=== PATIENT | female | born 1990 | race Caucasian/White ===

== ENCOUNTER 2022-11-29 15:25 | Emergency (ER) | payer BC, MEDICAID, SELFPAY ==
[2022-11-29] VITALS (9 sets, daily range): BP systolic 122–126; BP diastolic 82–84; PULSE 89; RESP 16; TEMP 36.7; O2SAT 94–99
--- NOTE | 2022-11-29 16:28 | ED_ITS ---
HPI - Abdominal Pain General: Chief Complaint: Abdominal Pain Stated Complaint: possible appy, sent from [place] Time Seen by Provider: 11/29/22 16:08 Source: patient Mode of arrival: ambulatory History of Present Illness: 32-year-old male presents emergency room with complaints of right lower quadrant abdominal pain. She states she has had abdominal pain for the last week. She is also difficulty with urination. She denies any fevers or chills she has a history of endometriosis. She has a little difficulty with getting her bladder empty. She not had any diarrhea no hematochezia melena hematemesis or coffee-ground emesis. MD elicited complaint: abdominal pain Onset (ago): week(s) (1) Pain Consistency: intermittent Location: RLQ Severity: moderate Quality: cramping Radiation: none Migration to: no migration Exacerbating factors: nothing Relieving factors: nothing Associated Symptoms: Denies anorexia, belching, bloating, change in bowel habits, change in stool character, chills, coffee ground emesis, constipation, GI cramping, diarrhea, dyspepsia, dysuria, excessive flatus, fever(s), heartburn, hematochezia, hematuria, hematemesis, fecal incontinence, loose stools, melena, nausea, poor appetite, syncope and vomiting Review of Systems Const: Denies: fever(s) or chills ENMT: Denies: throat pain, ear or mastoid pain, nasal discharge or nasal congestion Card: Denies: syncope Resp: Denies: dyspnea, productive cough or non-productive cough GI: Reports: abdominal pain; Denies: nausea, vomiting, hematemesis, coffee ground emesis, heartburn, diarrhea, constipation, bloating, GI cramping, belching, excessive flatus, fecal incontinence, change in bowel habits, change in stool character, hematochezia or melena : Denies: dysuria or hematuria Skin/Breast: Denies: rash or pruritus PFSH ED PFSH: Social History Smoking and tobacco status: current every day smoker Alcohol intake: current Alcohol intake frequency: holidays/special occasions only Physical Exam Const: COMMON NORMALS: no acute distress GENERAL APPEARANCE: cooperative and comfortable ORIENTATION/CONSCIOUSNESS: Yes awake, Yes oriented to person, Yes oriented to place and Yes oriented to time HENMT: COMMON NORMALS: normocephalic, atraumatic and hearing grossly normal bilaterally HEAD & SCALP: normocephalic and atraumatic Resp: COMMON NORMALS: normal respiratory effort, No retractions, No use of accessory muscles and clear to auscultation bilaterally AUSCULTATION: clear to auscultation bilaterally Cardio: COMMON NORMALS: regular rate, regular rhythm and No murmurs present (Cardio) RATE: regular rate RHYTHM: regular rhythm GI: COMMON NORMALS: No hepatosplenomegaly present AUSCULTATION: Yes normoactive bowel sounds PALPATION: Yes Tenderness to palpation present (GI) Details: RLQ, No Guarding due to palpation present (GI) and Yes No hepatosplenomegaly present Extremity: COMMON NORMALS: normal to inspection, capillary refill normal, no clubbing, cyanosis or edema, no calf tenderness and no pedal edema Neuro: SENSORIUM/ORIENTATION: Yes oriented to person, Yes oriented to place and Yes oriented to time Skin: COMMON NORMALS: no rashes or lesions noted GENERAL SKIN EXAM: no rashes or lesions noted Course Vital Signs: Vital signs: Vital Signs Temperature 98.1 F 11/29/22 15:36 Pulse Rate 89 11/29/22 15:36 Respiratory Rate 16 11/29/22 15:36 Blood Pressure 125/84 11/29/22 17:30 Pulse Oximetry 98 11/29/22 17:30 Oxygen Delivery Me thod 11/29/22 15:36 MDM - Abdominal Pain Medical Decision Making CT does not show any acute appendicitis there is a 2 cm right ovarian cyst which is likely the cause of the pain. We will discharge patient home with anti- inflammatories follow-up with primary care doctor in the next 1 to 2 months for repeat ultrasound if pain persist with worsening symptoms return to discussed with her that if this cyst were to rupture would likely cause significant discomfort if she is uncertain she is certainly welcome to return to the emergency room. Medical Records I reviewed the patient's medical records. Lab Data I reviewed the patient's lab results. 11/29/22 16:20 11/29/22 16:20 Labs/Radiology: Radiology Impressions Abdomen/Pelvis CT 11/29/22 16:32 IMPRESSION: 1. The gallbladder is contracted with wall thickening. This may reflect postprandial state. If acute cholecystitis is suspected clinically consider follow-up with a right upper quadrant ultrasound. 2. Normal appendix. Laboratory Results WBC 10.5 10^3/uL (4.0-10.0) H 11/29/22 16:20 RBC 4.00 10^6/uL (4.1-5.3) L 11/29/22 16:20 Hgb 13.0 g/dL (11.5-15.3) 11/29/22 16:20 Hct 38.3 % (37.0-47.0) 11/29/22 16:20 MCV 95.8 fl (81-99) 11/29/22 16:20 MCH 32.5 pg (28.0-34.0) 11/29/22 16:20 MCHC 33.9 g/dL (30.0-36.0) 11/29/22 16:20 RDW 11.7 % (12.1-15.1) L 11/29/22 16:20 Plt Count 330 10^3/cmm (130-400) 11/29/22 16:20 MPV 9.5 fL (7.4-10.4) 11/29/22 16:20 Neut % (Auto) 68.8 % 11/29/22 16:20 Lymph % (Auto) 24.1 % 11/29/22 16:20 [place] % (Auto) 4.9 % 11/29/22 16:20 Eos % (Auto) 1.3 % 11/29/22 16:20 Baso % (Auto) 0.5 % 11/29/22 16:20 Neut # (Auto) 7.21 10^3/uL (1.8-7.7) 11/29/22 16:20 Lymph # (Auto) 2.5 10^3/uL (0.8-4.8) 11/29/22 16:20 [place] # (Auto) 0.5 10^3/uL (0.2-0.9) 11/29/22 16:20 Eos # (Auto) 0.1 10^3/uL (0.0-0.8) 11/29/22 16:20 Baso # (Auto) 0.1 10^3/uL (0.0-0.1) 11/29/22 16:20 Nucleated RBC % (auto) 0 % 11/29/22 16:20 Nucleated RBCs # 0.0 /100WBC 11/29/22 16:20 Sodium 142 mmol/L (136-145) 11/29/22 16:20 Potassium 3.3 mmol/L (3.5-5.1) L 11/29/22 16:20 Chloride 105 mmol/L (98-107) 11/29/22 16:20 Carbon Dioxide 26 mmol/L (22-29) 11/29/22 16:20 Anion Gap 14.3 (5-19) 11/29/22 16:20 BUN 6 mg/dL (6-20) 11/29/22 16:20 Creatinine 0.7 mg/dL (0.5-0.9) 11/29/22 16:20 GFR Calculation 96.4 mL/min (90-130) 11/29/22 16:20 Glucose 85 mg/dL (65-115) 11/29/22 16:20 Calculated Osmolality 291 mOsm/kg (285-295) 11/29/22 16:20 Calcium 8.9 mg/dL (8.5-10.5) 11/29/22 16:20 Total Bilirubin 0.2 mg/dL (0.15-1.2) 11/29/22 16:20 AST 17 U/L (0-32) 11/29/22 16:20 ALT 21 U/L (0-33) 11/29/22 16:20 Alkaline Phosphatase 63 U/L (35-105) 11/29/22 16:20 Total Protein 6.9 g/dL (6.6-8.7) 11/29/22 16:20 Albumin 3.8 g/dL (3.5-5.2) 11/29/22 16:20 Globulin 3.1 g/dL (1.3-4.6) 11/29/22 16:20 Lipase 28 U/L (13-60) 11/29/22 16:20 HCG, Qual Negative (Negative) 11/29/22 16:20 Urine Color Light yellow (Yellow) 11/29/22 17:47 Urine Appearance Clear (CLEAR) 11/29/22 17:47 Urine pH 8 (5-7) H 11/29/22 17:47 Ur Specific [place] 1.015 (1.005-1.030) 11/29/22 17:47 Urine Protein Neg (Negative) 11/29/22 17:47 Urine Glucose (UA) Norm (Normal) 11/29/22 17:47 Urine Ketones Negative (Negative) 11/29/22 17:47 Urine Blood Neg (Negative) 11/29/22 17:47 Urine Nitrate Negative (Negative) 11/29/22 17:47 Urine Bilirubin Neg (Negative) 11/29/22 17:47 Prot Sulfosalicylic Acd Negative (Negative) 11/29/22 17:47 Urine Urobilinogen Norm mg/dL (Negative) 11/29/22 17:47 Ur Leukocyte Esterase Negative (Negative) 11/29/22 17:47 Discharge Plan Discharge Patient Disposition: Home Clinical Impression: Ovarian cyst Condition: Stable Prescriptions: New diclofenac sodium 75 mg tablet,delayed release (DR/EC) 75 mg PO Q12H PRN (Reason: pain) Qty: 20 0RF No Action paroxetine HCl 20 mg tablet 20 mg PO DAILY buspirone 15 mg tablet 15 mg PO DAILY Discharge Orders: Discharge ED (Routine); Ordered 11/29/22 Ordered By: Franky Mathews Referrals: Patrick Deras MD [Primary Care Provider] - Discharge Diet: Usual diet Discharge Activity: Increase activity as tolerated Patient Instructions: Opioid Safety, Pain Management Activity Restrictions/Additional Instructions: You are seen today for right-sided abdominal pain CT showed a normal appendix you do have an approximately 2 cm right ovarian cyst. If your symptoms persist follow-up with your primary care doctor you may need to repeat ultrasound in the next 1 to 2 months. For now recommend use diclofenac 1 every 12 hours as needed for abdominal discomfort. Coding Level of Care Code ED Director Game for Enio Lwory
[2022-11-29 16:31] LABS: Basophils # 0.1 10^3/uL (0.0-0.1); Basophils % 0.5 %; Eosinophils # 0.1 10^3/uL (0.0-0.8); Eosinophils % 1.3 %; Hematocrit 38.3 % (37.0-47.0); Lymphocytes # 2.5 10^3/uL (0.8-4.8); Lymphocytes % 24.1 %; Mean Corpuscular HGB Conc 33.9 g/dL (30.0-36.0); Mean Corpuscular Hemoglobin 32.5 pg (28.0-34.0); Mean Corpuscular Volume 95.8 fl (81-99); Mean Platelet Volume 9.5 fL (7.4-10.4); Monocytes # 0.5 10^3/uL (0.2-0.9); Monocytes % 4.9 %; Neutrophils # 7.21 10^3/uL (1.8-7.7); Neutrophils % 68.8 %; Nucleated Red Blood Cells % 0 %; Platelet Count 330 10^3/cmm (130-400); Red Cell Distribution Width 11.7 % (12.1-15.1); White Blood Count 10.5 10^3/uL (4.0-10.0)
--- NOTE | 2022-11-29 16:32 | CTR_ITS ---
PROCEDURE INFORMATION: Exam: CT Abdomen And Pelvis Without Contrast Exam date and time: 11/29/2022 5:18 PM Age: 32 years old Clinical indication: Abdominal pain; Localized; Right lower quadrant (rlq); Prior surgery; Surgery type: Uterus scraped for endometriosis TECHNIQUE: Imaging protocol: Computed tomography of the abdomen and pelvis without contrast. Radiation optimization: All CT scans at this facility use at least one of these dose optimization techniques: automated exposure control; mA and/or kV adjustment per patient size (includes targeted exams where dose is matched to clinical indication); or iterative reconstruction. REPORTING DATA: Count of CT and Cardiac NM exams in prior 12 months: This patient has received 0 known CTs and 0 known cardiac nuclear medicine studies in the 12 months prior to the current study. COMPARISON: US transvaginal [id number] 09/27/2018 10:30 PM RADIATION DOSE METRICS: Total DLP (mGy-cm): 518.06 FINDINGS: Liver: Normal. No mass. Gallbladder and bile ducts: The gallbladder is contracted with wall thickening. Pancreas: Normal. No ductal dilation. Spleen: Normal. No splenomegaly. Adrenal glands: Normal. No mass. Kidneys and ureters: Normal. No hydronephrosis. Stomach and bowel: Stool throughout the colon suggests constipation. No bowel obstruction. Appendix: No evidence of appendicitis. Intraperitoneal space: Unremarkable. No free air. No significant fluid collection. Vasculature: Unremarkable. No abdominal aortic aneurysm. Lymph nodes: Unremarkable. No enlarged lymph nodes. Urinary bladder: Unremarkable as visualized. Reproductive: 2 cm right ovarian simple cyst or dominant follicle physiologic. Bones/joints: Unremarkable. No acute fracture. Soft tissues: Unremarkable. CT/CT abdomen pelvis wo con [id number] IMPRESSION: 1. The gallbladder is contracted with wall thickening. This may reflect postprandial state. If acute cholecystitis is suspected clinically consider follow-up with a right upper quadrant ultrasound. 2. Normal appendix.
[2022-11-29 16:54] LABS: Alanine Aminotransferase 21 U/L (0-33); Albumin Level 3.8 g/dL (3.5-5.2); Alkaline Phosphatase 63 U/L (35-105); Anion Gap 14.3 (5-19); Aspartate Amino Transferase 17 U/L (0-32); Blood Urea Nitrogen 6 mg/dL (6-20); Calcium 8.9 mg/dL (8.5-10.5); Carbon Dioxide 26 mmol/L (22-29); Chloride 105 mmol/L (98-107); Globulin 3.1 g/dL (1.3-4.6); Glomerular Filtration Rate 96.4 mL/min (90-130); Glucose 85 mg/dL (65-115); Lipase 28 U/L (13-60); Osmolality Calculated 291 mOsm/kg (285-295); Potassium 3.3 mmol/L (3.5-5.1); Sodium 142 mmol/L (136-145); Total Bilirubin 0.2 mg/dL (0.15-1.2); Total Protein 6.9 g/dL (6.6-8.7)
[2022-11-29] MEDS: sodium chloride 0.9% 1,000 ML 999 ML IV (16:54)
[2022-11-29 17:11] LABS: HCG, Serum Qual Negative (Negative)
[2022-11-29 17:53] LABS: Add Urine Microscopic? NO; Charge for UA Resulting for Rev
[2022-11-29 18:06] LABS: Bilirubin Urine Neg (Negative); Blood Urine Neg (Negative); Glucose Urine UA Norm (Normal); Ketones Urine Negative (Negative); Leukocyte Esterase Urine Negative (Negative); Nitrate Urine Negative (Negative); Protein Urine Neg (Negative); Specific Gravity, Urine 1.015 (1.005-1.030); Sulfosalicylic Acid Urine Negative (Negative); Urine Appearance Clear (CLEAR); Urine Color Light yellow (Yellow); Urobilinogen Urine Norm (Negative); pH Urine 8 (5-7)
== END 2022-11-29 18:27 | disposition home or self-care (01) ==
PROVIDERS: Physician Assistant; Emergency Provider Family Medicine; PCP Family Medicine
DX: N83.201 Unspecified ovarian cyst, right side (principal); F17.200 Nicotine dependence, unspecified, uncomplicated
CPT/HCPCS: 36415; 74176; 80053; 81003; 83690; 84703; 85025; 99284; J7030

== ENCOUNTER 2024-10-11 18:35 | Emergency (ER) | payer BC, MEDICAID, SELFPAY ==
[2024-10-11 18:36] VITALS: BP 123/87; PULSE 89; RESP 18; TEMP 36.9; O2SAT 98; BMI 29.2
--- NOTE | 2024-10-11 18:58 | W.ED.GIBLEED ---
HPI - GI Bleed General: Chief complaint: GI Bleed Stated complaint: Rectal Bleeding Time Seen by Provider: 10/11/24 18:36 History of Present Illness: 34-year-old woman who presents emergency room with bright red blood per rectum that she says smelled very terrible. This caused her to call an ambulance. She says she does have hemorrhoids. But she has never had an odor like this. No abdominal pain. She reports she was supposed to have surgery on her hemorrhoids but did not go. She says she has continuous bleeding from these but today the odor was what caused her concern. No fevers. No altered mental status. No chest pain. No shortness of breath. Related Data Home Medications Medication Instructions Recorded Confirmed buspirone 15 mg tablet 15 mg PO DAILY 11/29/22 11/29/22 paroxetine HCl 20 mg tablet 20 mg PO DAILY 11/29/22 11/29/22 Previous Rx's Medication Instructions Recorded diclofenac sodium 75 mg 75 mg PO Q12H PRN pain #20 tabs 11/29/22 tablet,delayed release Allergies Allergy/AdvReac Type Severity Reaction Status Date / Time aspirin Allergy Unknown Unknown Verified 10/11/24 18:41 codeine Allergy Unknown unk Verified 10/11/24 18:41 Review of Systems Narrative: Constitutional symptoms: Negative except as documented in HPI. Skin symptoms: Negative except as documented in HPI. Eye symptoms: Negative except as documented in HPI. ENMT symptoms: Negative except as documented in HPI. Respiratory symptoms: Negative except as documented in HPI. Cardiovascular symptoms: Negative except as documented in HPI. Gastrointestinal symptoms: Negative except as documented in HPI. Genitourinary symptoms: Negative except as documented in HPI. Musculoskeletal symptoms: Negative except as documented in HPI. Neurologic symptoms: Negative except as documented in HPI. Psychiatric symptoms: Negative except as documented in HPI. Endocrine symptoms: Negative except as documented in HPI. PFSH ED PFSH: Social History Smoking and tobacco/nicotine status: current every day tobacco/nicotine user Alcohol intake: current Alcohol intake frequency: holidays/special occasions only Female Reproductive History: Date of last menstrual period: 09/29/24 Physical Exam Narrative: EXAM NARRATIVE: General: Alert, no acute distress. Skin: warm and dry Head: Normocephalic Neck: Trachea midline Eye: Extraocular movements are intact. Ears, nose, mouth and throat: Oral mucosa moist Respiratory: Respirations are non-labored Musculoskeletal: Normal ROM Neurological: Alert and oriented, No focal neurological deficit observed. Psychiatric: Cooperative, appropriate mood & affect. Course Vital Signs: Vital signs: Vital Signs Temperature 98.5 F 10/11/24 18:36 Pulse Rate 89 10/11/24 18:36 Respiratory Rate 18 10/11/24 18:36 Blood Pressure 123/87 10/11/24 18:36 Pulse Oximetry 98 10/11/24 18:36 Oxygen Delivery Me thod Room Air 10/11/24 18:36 MDM - GI Bleed Medical Decision Making Medical decision making: Differential diagnosis including but not limited to and based on the above HPI, review of systems and physical exam: Bright red blood per rectum. Likely from hemorrhoids. Would have concern for anemia. Orders placed to evaluate differential diagnosis based on the above differential, HPI and physical exam Lab Review: Laboratory results were reviewed and interpreted by myself the emergency room physician. Mild elevation in liver enzymes. Patient is aware. She says she has hep C. She will follow with her doctor on this. No anemia. No leukocytosis. No renal failure. I reviewed the patient's medical record. Reexamination: Patient remained stable. No increased work of breathing. No altered mental status. No focal motor deficits. Patient will resume follow-up with the surgeon concerning hemorrhoids. She also will follow-up with her doctor concerning her hep C. Assessment and plan: Hematochezia Hemorrhoids Hepatitis C - Discharged home - Discussed plan with patient. Answered any questions. - Evaluation and treatment of this problem were appropriate in the emergency setting. Lab Data 10/11/24 19:09 10/11/24 19:09 Laboratory Results WBC 10.62 10^3/uL (3.29-11.43) 10/11/24 19:09 RBC 4.43 10^6/uL (3.85-5.65) 10/11/24 19:09 Hgb 13.80 g/dL (11.27-16.99) 10/11/24 19:09 Hct 41.9 % (36-47) 10/11/24 19:09 MCV 94.6 fl (85-98) 10/11/24 19:09 MCH 31.2 pg (27-33) 10/11/24 19:09 MCHC 32.9 g/dL (30-55) 10/11/24 19:09 RDW 11.7 % (12.1-15.1) L 10/11/24 19:09 Plt Count 314 10^3/cmm (157-399) 10/11/24 19:09 MPV 9.4 fL (7.4-10.4) 10/11/24 19:09 Neut % (Auto) 65.3 % 10/11/24 19:09 Lymph % (Auto) 24.2 % 10/11/24 19:09 [place] % (Auto) 8.1 % 10/11/24 19:09 Eos % (Auto) 1.5 % 10/11/24 19:09 Baso % (Auto) 0.5 % 10/11/24 19:09 Neut # (Auto) 6.94 10^3/uL (1.8-7.7) 10/11/24 19:09 Lymph # (Auto) 2.6 10^3/uL (0.8-4.8) 10/11/24 19:09 [place] # (Auto) 0.9 10^3/uL (0.2-0.9) 10/11/24 19:09 Eos # (Auto) 0.2 10^3/uL (0.0-0.8) 10/11/24 19:09 Baso # (Auto) 0.1 10^3/uL (0.0-0.1) 10/11/24 19:09 Nucleated RBC % (auto) 0 % 10/11/24 19:09 Nucleated RBCs # 0.0 /100WBC 10/11/24 19:09 Sodium 137 mmol/L (136-145) 10/11/24 19:09 Potassium 3.7 mmol/L (3.5-5.1) 10/11/24 19:09 Chloride 101 mmol/L (98-107) 10/11/24 19:09 Carbon Dioxide 25 mmol/L (22-29) 10/11/24 19:09 Anion Gap 14.7 (5-19) 10/11/24 19:09 BUN 10 mg/dL (6-20) 10/11/24 19:09 Creatinine 0.7 mg/dL (0.5-0.9) 10/11/24 19:09 GFR Calculation 95.2 mL/min (90-130) 10/11/24 19:09 Glucose 112 mg/dL (65-115) 10/11/24 19:09 Calculated Osmolality 284 mOsm/kg (285-295) L 10/11/24 19:09 Calcium 9.4 mg/dL (8.5-10.5) 10/11/24 19:09 Total Bilirubin 0.2 mg/dL (0.15-1.2) 10/11/24 19:09 AST 124 U/L (0-32) H 10/11/24 19:09 ALT 217 U/L (0-33) H 10/11/24 19:09 Alkaline Phosphatase 67 U/L (35-105) 10/11/24 19:09 Total Protein 7.3 g/dL (6.6-8.7) 10/11/24 19:09 Albumin 4.0 g/dL (3.5-5.2) 10/11/24 19:09 Globulin 3.3 g/dL (1.3-4.6) 10/11/24 19:09 No radiology studies performed this visit Discharge Plan Discharge Patient Disposition: Home Clinical Impression: Hematochezia, Hemorrhoids, Hepatitis C Condition: Stable Prescriptions: No Action paroxetine HCl 20 mg tablet 20 mg PO DAILY buspirone 15 mg tablet 15 mg PO DAILY diclofenac sodium 75 mg tablet,delayed release (DR/EC) 75 mg PO Q12H PRN (Reason: pain) Qty: 20 0RF Discharge Orders: Discharge ED (Routine); Ordered 10/11/24 Ordered By: Steph Solomon Referrals: Patrick Deras MD [Primary Care Provider] - Discharge Diet: Usual diet Discharge Activity: Increase activity as tolerated Patient Instructions: Rectal Bleeding (ED), Opioid Safety, Pain Management Activity Restrictions/Additional Instructions: Thank you for choosing [facility] for your healthcare needs today. Please realize this is an emergency room and that we are providing you with a medical screening exam and this may not be complete and all inclusive of all the testing and or work up that you may need to determine your ailment or severity of your illness. You have been screened and evaluated and felt safe for discharge. Health conditions do change or evolve sometimes and as such it is important that you follow up with your Primary Doctor to be re checked, 3-5 days is a general good time frame for follow up. You are always welcome to return to the ED for re assessment if your symptoms are worsening or you have new concerns Coding Level of Care Code ED Cyber Incident Handler for Enio Lowry
[2024-10-11 19:30] LABS: Basophils # 0.1 10^3/uL (0.0-0.1); Basophils % 0.5 %; Eosinophils # 0.2 10^3/uL (0.0-0.8); Eosinophils % 1.5 %; Hematocrit 41.9 % (36-47); Lymphocytes # 2.6 10^3/uL (0.8-4.8); Lymphocytes % 24.2 %; Mean Corpuscular HGB Conc 32.9 g/dL (30-55); Mean Corpuscular Hemoglobin 31.2 pg (27-33); Mean Corpuscular Volume 94.6 fl (85-98); Mean Platelet Volume 9.4 fL (7.4-10.4); Monocytes # 0.9 10^3/uL (0.2-0.9); Monocytes % 8.1 %; Neutrophils # 6.94 10^3/uL (1.8-7.7); Neutrophils % 65.3 %; Nucleated Red Blood Cells % 0 %; Platelet Count 314 10^3/cmm (157-399); Red Blood Count 4.43 10^6/uL (3.85-5.65); Red Cell Distribution Width 11.7 % (12.1-15.1); White Blood Count 10.62 10^3/uL (3.29-11.43)
[2024-10-11 19:53] LABS: Alanine Aminotransferase 217 U/L (0-33); Alkaline Phosphatase 67 U/L (35-105); Anion Gap 14.7 (5-19); Aspartate Amino Transferase 124 U/L (0-32); Blood Urea Nitrogen 10 mg/dL (6-20); Calcium 9.4 mg/dL (8.5-10.5); Carbon Dioxide 25 mmol/L (22-29); Chloride 101 mmol/L (98-107); Creatinine Clr Calc Pharmacy 108.6888; Globulin 3.3 g/dL (1.3-4.6); Glomerular Filtration Rate 95.2 mL/min (90-130); Glucose 112 mg/dL (65-115); Osmolality Calculated 284 mOsm/kg (285-295); Potassium 3.7 mmol/L (3.5-5.1); Sodium 137 mmol/L (136-145); Total Bilirubin 0.2 mg/dL (0.15-1.2); Total Protein 7.3 g/dL (6.6-8.7)
[2024-10-11 20:17] VITALS: BP 145/98; PULSE 95; O2SAT 98
== END 2024-10-11 20:18 | disposition home or self-care (01) ==
PROVIDERS: Emergency Provider Emergency Medicine; PCP Family Medicine
DX: K92.1 Melena (principal); K64.9 Unspecified hemorrhoids; B19.20 Unspecified viral hepatitis C without hepatic coma; Z72.0 Tobacco use
CPT/HCPCS: 36415; 80053; 85025; 99283